=== PATIENT | male | born 1970 | race Caucasian/White ===

== ENCOUNTER 2020-01-09 11:11 | Emergency (ER) | payer OTHER ==
[2020-01-09 11:14] VITALS: TEMP 99.5; BMI 32.3
--- NOTE | 2020-01-09 11:15 | PDOC ---
History of Present Illness - General Chief Complaint: Pain, Acute Stated Complaint: RIGHT FLANK PAIN Time Seen by Provider: 01/09/20 11:15 History Source: Patient Exam Limitations: No Limitations - History of Present Illness Initial Comments: 49 year old male with PMH multiple nephrolithiasis (10, x1 lithotripsy) presented to the ED for right low back pain x2 weeks, worsening last night. Pt reported he has had many kidney stones in the past, all but one have passed naturally, and he figured he had another stone, but did not want to come to the ED 2/2 COVID-19 risk. He reported the pain has been persistent, and not improved, worsening last night, prompting him to come to the ED. Pt denied radiation of pain, chest pain, dysuria, frequency, abdominal pain, nausea, vomiting, lightheadedness, numbness, tingling, weakness. Pt denied cigarette history. ROS General: denied fever, chills, generalized weakness. HEENT: denied sore throat, rhinorrhea, ear pain. Cardiovascular: denied chest pain, palpitations, syncope, diaphoresis. Respiratory: denied shortness of breath, cough, sputum production, hemoptysis. Gastrointestinal: denied abdominal pain, nausea, vomiting, diarrhea, constipation, blood in stool. Genitourinary: denied dysuria, increased urinary frequency, hematuria, urinary incontinence, flank pain. Back: admitted to back pain. Musculoskeletal: denied joint pain, muscle pain, joint swelling. Neurological: denied headache, dizziness, numbness, tingling, weakness. Integumentary: denied rash, laceration, abrasion. Hematologic/Lymphatic: denied bruising or bleeding. PE Constitutional: Well-nourished, Well-developed, appearing stated age. HEENT: head is normocephalic, atraumatic. EOMI. PERRLA. Neck: supple. Full ROM. Cardiovascular: regular heart rhythm. Normal S1 and S2. no murmurs. no pericardial friction rub. Respiratory: clear to auscultation bilaterally. no crackles, rhonchi or wheezing. no stridor. Gastrointestinal: soft, flat, nontender. normal bowel sounds. no rebound, guarding, or masses. Back: no midline c-spine, t-spine, or l-spine tenderness. no paraspinal tenderness. no step offs. negative CVA tenderness bilaterally. no muscular t enderness along bilateral low back. Ambulates well without assistance. Extremities: peripheral pulses intact and equal. no lower extremity edema noted. Neurological: CN 2-12 grossly intact. moves all four extremities. Psych: awake, alert, oriented x3. follows commands. answers questions appropria tely. Past History - Medical History Allergies/Adverse Reactions: Allergies Allergy/AdvReac Type Severity Reaction Status Date / Time No Known Allergies Allergy Verified 01/09/20 11:12 Home Medications: Ambulatory Orders NK [No Known Home Medication] 01/09/20 COPD: No CHF: No Kidney Stones: Yes - Psycho-Social/Smoking History Smoking History: Never smoked - Substance Abuse Hx (Audit-C & DAST Scrn) How often the patient has a drink containing alcohol: Monthly or less Number of drinks the patient has on a typical day: 1 or 2 How often the patient has six or more drinks on one occasion: Never Score: In Men: 4 or > Positive; In Women: 3 or > Positive: 1 Screen Result (Pos requires Nsg. Audit-10AR): Negative In the last yr the pt used illegal drug/Rx for NonMed reason: No Score: Yes response is considered Positive: 0 Screen Result (Positive result requires Nsg. DAST-10): Negative *Physical Exam - Vital Signs Last Vital Signs Temp Pulse Resp BP Pulse Ox 99.5 F 100 H 18 153/109 H 100 01/09/20 11:11 01/09/20 11:11 01/09/20 11:11 01/09/20 11:11 01/09/20 11:11 ED Treatment Course - LABORATORY CBC & Chemistry Diagram: 01/09/20 11:28 01/09/20 11:30 Medical Decision Making - Medical Decision Making 49 year old male with above PMH presented to ED for right low back pain x2 weeks, worsening last night. Initial Vital Signs Temp Pulse Resp BP Pulse Ox 99.5 F 100 H 18 153/109 H 100 01/09/20 11:11 01/09/20 11:11 01/09/20 11:11 01/09/20 11:11 01/09/20 11:11 Afebrile. Borderline tachycardia. No tachypnea. Hypertensive. No hypoxia on room air. Medications ordered Ketorolac Injection [Toradol Injection -] 30 mg IVPUSH ONCE ONE Sodium Chloride [Normal Saline -] 1,000 ml IV ASDIR Orders SPIRAL- RENAL-STONE CT [CT] Stat CBC WITH DIFFERENTIAL Stat COMP METABOLIC PANEL Stat UA ([facility] ONLY) Stat 01/09/20 12:05 Laboratory Last Values WBC 5.6 K/mm3 (4.0-10.8) 01/09/20 11:28 RBC 5.12 M/mm3 (4.00-5.60) 01/09/20 11:28 Hgb 15.7 GM/dl (11.7-16.9) 01/09/20 11:28 Hct 45.5 % (35.4-49) 01/09/20 11:28 MCV 88.9 fl (80-96) 01/09/20 11: MCH 30.6 pg (25.7-33.7) 01/09/20 11: MCHC 34.4 g/dl (32.0-35.9) 01/09/20 11: RDW 11.7 % (11.9-15.9) L 01/09/20 11: Plt Count 247 K/MM3 (134-434) 01/09/20 11:28 MPV 9.6 fl (7.5-11.1) 01/09/20 11:28 Absolute Neuts (auto) 2.8 K/mm3 01/09/20 11: Neutrophils % 50.8 % (42.8-82.8) 01/09/20 11: Lymphocytes % 35.4 % (8-40) 01/09/20 11: Monocytes % 8.4 % (3.8-10.2) 01/09/20 11: Eosinophils % 4.3 % (0-4.5) 01/09/20 11:28 Basophils % 1.1 % (0-2.0) 01/09/20 11:28 Sodium 139 mmol/L (136-145) 01/09/20 11:30 Potassium 3.8 mmol/L (3.5-5.1) 01/09/20 11: Chloride 102 mmol/L (98-107) 01/09/20 11: Carbon Dioxide 27 mmol/L (21-32) 01/09/20 11:30 Anion Gap 10 MMOL/L (8-16) 01/09/20 11:30 BUN 13.0 mg/dl (7-18) 01/09/20 11:30 Creatinine 1.0 mg/dl (0.55-1.3) 01/09/20 11:30 Est GFR (CKD-EPI)AfAm 101.98 01/09/20 11:30 Est GFR (CKD-EPI)NonAf 87.99 01/09/20 11:30 Random Glucose 103 mg/dl (74-106) 01/09/20 11:30 Calcium 9.2 mg/dl (8.5-10) 01/09/20 11:30 Total Bilirubin 1.1 mg/dl (0.2-1) H 01/09/20 11:30 AST 24 U/L (15-37) 01/09/20 11:30 ALT 40 U/L (13-61) 01/09/20 11:30 Alkaline Phosphatase 68 U/L (45-117) 01/09/20 11:30 Total Protein 7.2 g/dl (6.4-8.2) 01/09/20 11:30 Albumin 4.1 g/dl (3.4-5.0) 01/09/20 11:30 Urine Color Yellow 01/09/20 11:28 Urine Appearance Clear 01/09/20 11:28 Urine pH 5.5 (4.5-8) 01/09/20 11:28 Urine Protein Negative (NEGATIVE) 01/09/20 11:28 Urine Glucose (UA) Negative (NEGATIVE) 01/09/20 11:28 Urine Ketones Negative (NEGATIVE) 01/09/20 11:28 Urine Blood Negative (NEGATIVE) 01/09/20 11:28 Urine Nitrite Negative (NEGATIVE) 01/09/20 11:28 Urine Bilirubin Negative (NEGATIVE) 01/09/20 11:28 Urine Urobilinogen 0.2 (0.2-1.0) 01/09/20 11:28 Ur Leukocyte Esterase Negative (NEGATIVE) 01/09/20 11:28 No leukocytosis. No anemia. No electrolyte abnormalities. No JELLY. No transaminitis. No hematuria. No UTI. CT revealed multiple bilateral non-obstructing stones. Pt has no PCP, no urologist. Will DC with instructions for NSAID use, increasing hydration, PCP referral, urology referral. Pt discharged. Discharge - Discharge Information Problems reviewed: Yes Clinical Impression/Diagnosis: Nephrolithiasis, Fatty liver Condition: Improved Disposition: HOME - Admission No - Follow up/Referral Referrals: Tejas Rehman MD [Staff Physician] - Willie Kramer MD [Staff Physician] - Rajiv Salinas MD [Staff Physician] - Mel Garcia MD [Staff Physician] - - Patient Discharge Instructions Patient Printed Discharge Instructions: DI for Kidney Stones, DI for Nonalcoholic Fatty Liver Disease Additional Instructions: Follow up with your primary care doctor within 3 days of your ER visit. Your care is not complete until you follow up. I have provided you with a referral. Follow up with a urologist within 1 week regarding your ER visit. Your care is not complete until you follow up. I have provided you with multiple referrals. Increase your daily water intake to flush out the stones. Take Aleve every 12 hours for pain. Take as advised on label. If you do not feel relief after 4 consecutive doses, stop this medication. Take with food, as this medication can irritate your stomach. Return to the ER for increasing pain, chest pain, shortness of breath, vomiting, fever, chills, numbness, weakness or any other new, worsening or concerning symptoms. - Post Discharge Activity Work/Back to School Note: Back to Work
[2020-01-09] MEDS ORDERED: SODIUM CHLORIDE 1,000 ML IV STA (11:20)
[2020-01-09] MEDS ORDERED: KETOROLAC TROMETHAMINE 30 MG/1 ML VIAL IVPUSH ONE ×2 (11:20→12:19)
[2020-01-09 11:59] LABS: BASO % 1.1 % (0-2.0); EOS % 4.3 % (0-4.5); HEMATOCRIT 45.5 % (35.4-49); HEMOGLOBIN 15.7 GM/dl (11.7-16.9); LYMPH % 35.4 % (8-40); MCH 30.6 pg (25.7-33.7); MCHC 34.4 g/dl (32.0-35.9); MEAN CELL VOLUME 88.9 fl (80-96); MEAN PLT VOLUME 9.6 fl (7.5-11.1); MONO % 8.4 % (3.8-10.2); NEUT % 50.8 % (42.8-82.8); PLATELET COUNT 247 K/MM3 (134-434); RBC 5.12 M/mm3 (4.00-5.60); RDW 11.7 % (11.9-15.9); WHITE BLOOD COUNT 5.6 K/mm3 (4.0-10.8)
[2020-01-09 11:59] LABS: ALBUMIN 4.1 g/dl (3.4-5.0); BILIRUBIN,TOTAL 1.1 mg/dl (0.2-1); CALCIUM 9.2 mg/dl (8.5-10); POTASSIUM 3.8 mmol/L (3.5-5.1); TOT PROT 7.2 g/dl (6.4-8.2)
[2020-01-09] MEDS ORDERED: KETOROLAC TROMETHAMINE 30 MG/1 ML VIAL ONE (12:21)
[2020-01-09 12:22] VITALS: BP 123/73; PULSE 71
--- NOTE | 2020-01-09 12:28 | PDOC ---
Attending Attestation - Resident Resident Name: Sherice Erickson - ED Attending Attestation I have performed the following: I have examined & evaluated the patient, The case was reviewed & discussed with the resident, I agree w/resident's findings & plan - HPI HPI: 01/09/20 12:24 Healthy 49-year-old male with history of kidney stones presents with intermittent right flank pain for the last 2 weeks. Patient noted mild onset of dull right flank/low back pain that has been intermittent over the last 2 weeks, lasting seconds to minutes, occasionally positional, and not associated with any urinary complaints/GI complaints/fever/chills. Patient assumed this was a kidney stone exacerbation, delayed hospital evaluation secondary to COVID concerns, did not take anything for pain, presents today for persistent symptoms. Patient required procedural removal of stone when he was in his 20s, otherwise has passed them spontaneously since then. Denies any other complaints, denies any injury or motor/sensory deficit, denies any neurological complaints. - Physicial Exam PE: 01/09/20 12:26 Vitals as noted, elevated blood pressure and heart rate on arrival but resolved after anxiety improved, afebrile Well-appearing seated comfortably in stretcher speaking full sentences No jaundice or pallor Heart is regular, lungs are clear Abdomen is soft/nontender/nondistended, reproducible discomfort in the right flank region, no rash Neurologically intact - Medical Decision Making 01/09/20 12:27 Healthy 49-year-old male with 2 weeks of intermittent right flank pain, history of renal colic makes nephrolithiasis a consideration, possibly musculoskeletal, lower suspicion for any vascular or neurological etiology. Labs are within normal limits, including urinalysis CT of the abdomen and pelvis shows no acute abnormalities, nephrolithiasis without ureteral stone or hydronephrosis Feels comfortable, vitals improved, question musculoskeletal versus passed stone, will give PCP referral for further evaluation and consideration of outpatient MRI, understands return criteria Discharge - Discharge Information Problems reviewed: Yes Clinical Impression/Diagnosis: Nephrolithiasis, Fatty liver Right low back pain Qualifiers: Chronicity: acute Sciatica presence: without sciatica Qualified Code(s): M54.5 - Low back pain Condition: Stable Disposition: HOME - Follow up/Referral Referrals: Rajiv Salinas MD [Staff Physician] - Tejas Rehman MD [Staff Physician] - Willie Kramer MD [Staff Physician] - Mel Garcia MD [Staff Physician] - - Patient Discharge Instructions Patient Printed Discharge Instructions: DI for Kidney Stones, DI for Nonalcoholic Fatty Liver Disease Additional Instructions: Follow up with your primary care doctor within 3 days of your ER visit. Your care is not complete until you follow up. I have provided you with a referral. Follow up with a urologist within 1 week regarding your ER visit. Your care is not complete until you follow up. I have provided you with multiple referrals. Increase your daily water intake to flush out the stones. Take Aleve every 12 hours for pain. Take as advised on label. If you do not feel relief after 4 consecutive doses, stop this medication. Take with food, as this medication can irritate your stomach. Return to the ER for increasing pain, chest pain, shortness of breath, vomiting, fever, chills, numbness, weakness or any other new, worsening or concerning symptoms. - Post Discharge Activity Work/Back to School Note: Back to Work
== END 2020-01-09 12:29 | disposition home or self-care (01) ==
LOC: FER 11:11
PROC: 3E0333Z Introduction of Anti-inflammatory into Peripheral Vein, Percutaneous Approach (ICD-10-PCS; principal; 2020-01-09)
PROC: 3E0337Z Introduction of Electrolytic and Water Balance Substance into Peripheral Vein, Percutaneous Approach (ICD-10-PCS; 2020-01-09)
DX: N20.0 Calculus of kidney (principal); K76.0 Fatty (change of) liver, not elsewhere classified; M54.5 Low back pain
CPT/HCPCS: 36415; 74176-TC; 80053; 81003; 85025; 87086; 99284-25

== ENCOUNTER 2020-04-03 11:44 | Emergency (ER) | payer OTHER | END 2020-04-03 12:20 | disposition home or self-care (01) | LOC: JVIRT 11:44 | DX: Z20.822 Contact with and (suspected) exposure to COVID-19 (principal) | CPT/HCPCS: C9803; Q3014-GT; U0003 ==

== ENCOUNTER 2020-06-29 04:24 | Emergency (ER) | payer OTHER ==
[2020-06-29] MEDS ORDERED: KETOROLAC TROMETHAMINE 30 MG/1 ML VIAL ONE (04:27)
[2020-06-29 04:31] VITALS: PULSE 88; TEMP 98; BMI 31.6
[2020-06-29] MEDS ORDERED: KETOROLAC TROMETHAMINE 30 MG/1 ML VIAL IVPUSH ONE (04:31)
[2020-06-29] MEDS ORDERED: ONDANSETRON 4 MG/2 ML VIAL IVPB ONE (04:31)
[2020-06-29] MEDS ORDERED: SODIUM CHLORIDE 1,000 ML IV ONE (04:35)
[2020-06-29] MEDS ORDERED: morphine CARPU-JECT 2 MG/1 ML DISP.SYRIN IVPUSH ONE (04:35)
[2020-06-29] MEDS ORDERED: morphine SULFATE 4 MG/ML VIAL ONE (04:39)
[2020-06-29] MEDS ORDERED: ONDANSETRON 4 MG/2 ML VIAL ONE (04:39)
[2020-06-29 05:28] VITALS: BP 143/97
[2020-06-29 05:57] LABS: EPI CELLS 11 /uL (0-25.1); HYALINE CASTS 6 /uL (0-3.1); URINE APPEARANCE CLOUDY; URINE BACTERIA 1153 /uL (0-1359); URINE BILIRUBIN 1+ (NEGATIVE); URINE COLOR DK YELLOW; URINE GLUCOSE (UA) NEGATIVE (NEGATIVE); URINE KETONE TRACE (NEGATIVE); URINE LEUK ESTERASE NEGATIVE (NEGATIVE); URINE NITRITE NEGATIVE (NEGATIVE); URINE PROTEIN 1+ (NEGATIVE); URINE RBC 23 /uL (0-23.9); URINE UROBILINOGEN 0.2 mg/dL (0.2-1.0); URINE WBC 29 /uL (0-25.8)
[2020-06-29 06:19] LABS: POTASSIUM 3.9 mmol/L (3.5-5.1)
[2020-06-29 06:33] LABS: BASO % 0.7 % (0-2.0); EOS % 2.8 % (0-4.5); HEMATOCRIT 44.1 % (35.4-49); LYMPH % 16.3 % (8-40); MCH 29.7 pg (25.7-33.7); MCHC 34.1 g/dl (32.0-35.9); MEAN CELL VOLUME 87.1 fl (80-96); MEAN PLT VOLUME 10.7 fl (7.5-11.1); MONO % 7.2 % (3.8-10.2); PLATELET COUNT 225 K/MM3 (134-434); RBC 5.06 M/mm3 (4.00-5.60); RDW 12.3 % (11.9-15.9); WHITE BLOOD COUNT 8.4 K/mm3 (4.0-10.0)
[2020-06-29] MEDS ORDERED: CEFTRIAXONE 1,000 MG in DEXTROSE 5%-WATER - 50 ML IVPB ONE (06:56)
[2020-06-29 06:57] LABS: CALCIUM 9.7 mg/dL (8.5-10.1)
[2020-06-29 06:58] LABS: ALBUMIN 4.3 g/dl (3.4-5.0); BLOOD UREA NITROGEN 13.4 mg/dL (7-18)
[2020-06-29] MEDS ORDERED: cefTRIAXone SODIUM 1 GM VIAL ONE (07:00)
[2020-06-29 07:01] LABS: CREATININE 1.4 mg/dL (0.55-1.3)
[2020-06-29 07:03] LABS: BILIRUBIN,TOTAL 0.5 mg/dL (0.2-1); TOT PROT 7.8 g/dl (6.4-8.2)
== END 2020-06-29 09:01 | disposition home or self-care (01) ==
LOC: FER 04:24
PROC: 3E033GC Introduction of Other Therapeutic Substance into Peripheral Vein, Percutaneous Approach (ICD-10-PCS; principal; 2020-06-29)
PROC: 3E0337Z Introduction of Electrolytic and Water Balance Substance into Peripheral Vein, Percutaneous Approach (ICD-10-PCS; principal; 2020-06-29)
DX: N20.0 Calculus of kidney (principal); N30.90 Cystitis, unspecified without hematuria
CPT/HCPCS: 36415; 74176-TC; 80053; 81003; 85025; 99285-25

== ENCOUNTER 2021-01-03 09:30 | Emergency (ER) | payer OTHER ==
[2021-01-03 09:47] VITALS: BP 134/92; PULSE 79; TEMP 98.4; BMI 32.3
[2021-01-03] MEDS ORDERED: DIPHTH,PERTUSS(ACELL),TET 0.5 ML DISP.SYRIN IM ONE ×2 (11:05→11:25)
== END 2021-01-03 11:38 | disposition home or self-care (01) ==
LOC: FER 09:30
PROC: 0HQFXZZ Repair Right Hand Skin, External Approach (ICD-10-PCS; principal; 2021-01-03)
PROC: 3E0234Z Introduction of Serum, Toxoid and Vaccine into Muscle, Percutaneous Approach (ICD-10-PCS; 2021-01-03)
DX: S61.411A Laceration without foreign body of right hand, initial encounter (principal); W26.8XXA Contact with other sharp object(s), not elsewhere classified, initial encounter
CPT/HCPCS: 90715; 99282-25

== ENCOUNTER 2021-12-24 09:49 | Emergency (ER) | payer OTHER ==
[2021-12-24 09:57] VITALS: RESP 16; BMI 34.2
[2021-12-24] MEDS ORDERED: KETOROLAC TROMETHAMINE 30 MG/1 ML VIAL IVPUSH ONE (10:05)
[2021-12-24] MEDS ORDERED: SODIUM CHLORIDE 1,000 ML IV ONE (10:05)
[2021-12-24] MEDS ORDERED: ONDANSETRON 4 MG/2 ML VIAL IVPB ONE (10:05)
[2021-12-24] MEDS ORDERED: ONDANSETRON 4 MG/2 ML VIAL ONE (10:11)
[2021-12-24] MEDS ORDERED: KETOROLAC TROMETHAMINE 30 MG/1 ML VIAL ONE (10:11)
[2021-12-24 10:38] LABS: HEMATOCRIT 43.7 % (35.4-49); HEMOGLOBIN 15.6 G/dL (11.7-16.9); MCH 30.5 pg (25.7-33.7); MCHC 35.6 g/dl (32.0-35.9); MEAN CELL VOLUME 85.6 fl (80-96); MEAN PLT VOLUME 9.1 fl (7.5-11.1); PLATELET COUNT 209.4 10^3/uL (134-434); RBC 5.11 10^6/uL (4.00-5.60); RDW 13.1 % (11.9-15.9); WHITE BLOOD COUNT 6.5 10^3/uL (4.0-10.8)
[2021-12-24 10:52] LABS: ALBUMIN 3.9 g/dl (3.4-5.0); BILIRUBIN,TOTAL 0.9 mg/dl (0.2-1); CALCIUM 9.3 mg/dl (8.5-10); CREATININE 1.2 mg/dl (0.55-1.3); TOT PROT 7.2 g/dl (6.4-8.2)
[2021-12-24 12:16] LABS: CALCIUM OXALATE CRYSTALS FEW /hpf (NONE SEEN); EPITHELIAL CELLS FEW /hpf
[2021-12-24 12:17] LABS: AMORP URATES 1+ /hpf (NONE SEEN)
[2021-12-24 12:18] LABS: URINE HYALINE CAST 0-2 /lpf; URINE MUCUS 2+
[2021-12-24 13:06] VITALS: BP 147/100; PULSE 86; TEMP 98.5
== END 2021-12-24 13:20 | disposition home or self-care (01) ==
LOC: FER 09:49
PROC: 3E0333Z Introduction of Anti-inflammatory into Peripheral Vein, Percutaneous Approach (ICD-10-PCS; principal; 2021-12-24)
PROC: 3E033GC Introduction of Other Therapeutic Substance into Peripheral Vein, Percutaneous Approach (ICD-10-PCS; 2021-12-24)
PROC: 3E0337Z Introduction of Electrolytic and Water Balance Substance into Peripheral Vein, Percutaneous Approach (ICD-10-PCS; 2021-12-24)
DX: N20.0 Calculus of kidney (principal)
CPT/HCPCS: 36415; 74176-TC; 80053; 81003; 81015; 85027; 93005; 99285-25

== ENCOUNTER 2022-08-25 21:59 | Emergency (ER) | payer OTHER ==
[2022-08-25 22:05] VITALS: RESP 16; BMI 34.3
[2022-08-25 22:31] VITALS: BP 148/72; PULSE 88; TEMP 99.1
== END 2022-08-25 22:27 | disposition home or self-care (01) ==
LOC: FER 21:59
DX: S61.211A Laceration without foreign body of left index finger without damage to nail, initial encounter (principal); W26.0XXA Contact with knife, initial encounter
CPT/HCPCS: 99282-25

== ENCOUNTER 2023-04-28 20:38 | Emergency (ER) | payer OTHER ==
[2023-04-28 20:48] VITALS: RESP 18; BMI 36.9
[2023-04-28 21:14] VITALS: BP 151/98; PULSE 89; TEMP 98.1
== END 2023-04-28 22:35 | disposition home or self-care (01) ==
LOC: FER 20:38
DX: R42 Dizziness and giddiness (principal); R11.10 Vomiting, unspecified
CPT/HCPCS: 70450-TC; 99284-25